=== PATIENT | female | born 1990 | race Caucasian/White ===

== ENCOUNTER → 2017-07-18 | Outpatient (CLI) | payer OTHER | LOC: M RAD 08:02 | DX: S92.355D Nondisplaced fracture of fifth metatarsal bone, left foot, subsequent encounter for fracture with routine healing (principal); X58.XXXD Exposure to other specified factors, subsequent encounter; Y92.89 Other specified places as the place of occurrence of the external cause; Y93.89 Activity, other specified; Y99.8 Other external cause status | CPT/HCPCS: 73700 ==

== ENCOUNTER 2019-05-17 11:22 | Emergency (ER) | payer OTHER ==
[~2019-05-17] VITALS: Ht 157.5 cm; Wt 55.9 kg
[2019-05-17 11:23] VITALS: BP 122/66
[2019-05-17] MEDS ORDERED: IBUP200T45 PO (12:22)
== END 2019-05-17 13:01 | disposition home or self-care (01) ==
LOC: M ED 11:22
DX: Z04.6 Encounter for general psychiatric examination, requested by authority (principal); F17.200 Nicotine dependence, unspecified, uncomplicated; J30.2 Other seasonal allergic rhinitis; Z88.1 Allergy status to other antibiotic agents

== ENCOUNTER → 2019-05-24 | Outpatient (CLI) | payer OTHER ==
[~2019-05-24] MED LIST: IBUP200T45 PO
== END ==
LOC: M OUTALCOH 09:40
PROVIDERS: ATTEND Psychiatry & Neurology Psychiatry
DX: Z03.89 Encounter for observation for other suspected diseases and conditions ruled out (principal)

== ENCOUNTER 2019-06-08 14:10 | Outpatient (RCR) | payer MEDICAID | END 2019-06-19 | LOC: M OUTALCOH 14:10 | PROVIDERS: ATTEND Psychiatry & Neurology Psychiatry | DX: Z03.89 Encounter for observation for other suspected diseases and conditions ruled out (principal) ==

== ENCOUNTER 2024-01-06 16:28 | Emergency (ER) | payer MEDICAID, OTHER ==
[~2024-01-06] VITALS: Ht 162.6 cm; Wt 65.0 kg
[~2024-01-06 16:28] MED LIST changes: -ELIQ5TAB PO; -HYDR-3713 PO
[2024-01-06] MEDS ORDERED: HYDR-3713 PO (16:38)
[2024-01-06 20:40] LABS: BASO # 0.2 10^3/uL (0.0-0.2); BASO % 1.4 % (0.0-1.0); EOS # 0.2 10^3/uL (0.0-0.5); EOS % 1.9 % (0.0-3.0); HEMATOCRIT 44.5 % (36.0-47.0); HEMOGLOBIN 15.4 g/dl (12.0-15.5); LYMPH # 3.2 10^3/uL (1.5-5.0); MEAN CORPUSCULAR HEMOGLOBIN 31.8 pg (27.0-33.0); MEAN CORPUSCULAR HGB CONC 34.6 g/dl (32.0-36.5); MEAN CORPUSCULAR VOLUME 91.9 fl (80.0-96.0); MONO # 0.6 10^3/uL (0.0-0.8); MONO % 5.3 % (2.0-8.0); NEUTROPHILS # 6.8 10^3/uL (1.5-8.5); NEUTROPHILS % 62.2 % (36.0-66.0); PLATELET COUNT, AUTOMATED 194 10^3/uL (150-450); RED BLOOD COUNT 4.84 10^6/uL (4.00-5.40)
[2024-01-06 20:54] LABS: INR 1.05; PARTIAL THROMBOPLASTIN TIME 25.4 SECONDS (24.8-34.2); PROTHROMBIN TIME 13.4 SECONDS (12.5-14.5)
[2024-01-06] MEDS ORDERED: ELIQ5TAB PO (21:19)
[2024-01-06] MEDS: APIXABAN 5 MG TAB (ELIQUIS) PO ONE (21:26)
[2024-01-06 21:36] VITALS: BP 135/82; TEMP 98; O2SAT 98
== END 2024-01-06 21:37 | disposition home or self-care (01) ==
LOC: M ED 16:28
DX: I82.401 Acute embolism and thrombosis of unspecified deep veins of right lower extremity (principal); J30.2 Other seasonal allergic rhinitis; Z88.1 Allergy status to other antibiotic agents

== ENCOUNTER → 2024-01-06 | Outpatient (CLI) | payer MEDICAID, OTHER ==
[~2024-01-06] MED LIST changes: +ELIQ5TAB PO; +HYDR-3713 PO; -IBUP200T45 PO; +IBUP200T46 PO
== END ==
LOC: M RAD 15:30
PROVIDERS: ATTEND Physician Assistant
DX: M79.661 Pain in right lower leg (principal); M71.21 Synovial cyst of popliteal space [Baker], right knee; I82.431 Acute embolism and thrombosis of right popliteal vein